=== PATIENT | female | born 1990 | race American Indian/Alaskan Native ===

== ENCOUNTER 2020-11-15 15:08 | Emergency (ER) | payer SELFPAY ==
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
[2020-11-16] MEDS ORDERED: Haloperidol Lactate 5 MG/ML SDV IM ONE (11:02)
== END 2020-11-16 19:14 ==
LOC: JP.ED 15:08
DX: F23 Brief psychotic disorder (principal); Z79.899 Other long term (current) drug therapy; Z72.0 Tobacco use
CPT/HCPCS: 36415; 80048; 80143; 80179; 80305; 80307; 81001; 81025; 84443; 85027; 96372; 99285; J1630; 99284